=== PATIENT | female | born 1940 | race Caucasian/White ===

== ENCOUNTER 2017-04-02 09:55 | Day surgery (SDC) | payer MEDICARE ==
[~2017-04-02] VITALS: Ht 165.1 cm; Wt 59.0 kg
[~2017-04-02 09:55] MED LIST: 0.9% Sodium Chloride 1,000 ML IV SCH; CALC500T9 PO; LEVO88TA4 PO; Sodium Chloride LOK Flush 10 mL Syringe IV PRN; VITAMIN B 12 SQ; fentaNYL-PF 50 mCg/mL 2 mL Inj IVPUSH PRN
[2017-04-02 10:39] VITALS: BP 136/72; PULSE 50; RESP 16; O2SAT 100
[2017-04-02 12:08] VITALS: BP 113/56; PULSE 54; RESP 16; O2SAT 99
[2017-04-02 12:18] VITALS: BP 115/54; PULSE 49; RESP 16; O2SAT 100
[2017-04-02 12:28] VITALS: BP 121/61; PULSE 53; RESP 16; O2SAT 100
[2017-04-02 12:38] VITALS: BP 138/58; PULSE 43; RESP 16; O2SAT 100
--- NOTE | 2017-04-02 12:54 | PCM.ENDCOL ---
Colonoscopy Date of Service: Apr 02, 2017 Physician Pacheco Muñoz MD Pre Procedure Diagnosis: crohn Post Procedure Dx & Findings: crohn Procedure Colonoscopy PROCEDURE IN DETAIL: Prep adequate. Withdrawal time 11 minutes After unremarkable rectal examination the Olympus video colonoscope was inserted patient's anal canal and was advanced to the anastomosis site. Scope further advanced to the small intestines. Advanced 10 cm. Scope was withdrawn systematically. Visualized colonic mucosa showed healthy shiny mucosa with normal healthy-appearing vasculature. In the terminal ileum, we saw small punctate ulcers with surrounding inflammation in isolated fashion. We also saw this at the anastomosis site. Biopsies obtained in these sites. In the rectum retroflexion was done which showed hemorrhoids. Anal canal was inspected carefully on the way out and hemorrhoids noted. Impression Some Crohn's activity mild to moderate. Hemorrhoids Recommendation Follow up in GI clinic. Presedation Assessment Risks and Benefits Informed consent was obtained from the patient after all risks and benefits including but not limited to drug reaction, infection, pain, bleeding, perforation, as well as alternatives were discussed. Patient monitoring Continuous pulse oximetry, cardiac monitoring, blood pressure monitoring, IV access, and oxygen at 2L per nasal cannula. Periprocedural Fentanyl: Fentanyl 100mcg Incrementally Midazolam: Midazolam 5mg Incrementally Complications There were no periprocedural complications identified. Post Procedure Plan Post Procedure Recommendations 1. Restrict activities today. 2. Resume normal activities in the morning. 3. Resume medications. 4. Patient informed of normal post procedure side effects as bloating, drowsiness, blood streaking in the stool. 5. average risk CRCS. If colon polyps come back as: -Hyperplastic- can repeat colonoscopy in 10 years -Tubular adenoma- repeat colonoscopy in 5 years -Tubulovillous/villous adenoma- repeat colonoscopy in 3 years -If any dysplasia- return to clinic as soon as possible 6. Please don't hesitate to call me with any questions. Pacheco Muñoz MD Apr 02, 2017 12:54
--- NOTE | 2017-04-04 16:54 | PATH ---
SURGICAL PATHOLOGY Attending Physician:Pacheco Muñoz M.D. CASE STATUS: Signed Out PATIENT NAME: GORDON DAVILA PID: [id number] : 1940 DATE COLLECTED:04/02/2017 20:57 SPECIMEN: Ileum, Biopsy CLINICAL HISTORY: 1). TERMINAL ILEUM BIOPSY FINAL DIAGNOSIS: Terminal Ileum, Biopsy: Portions of small bowel mucosa with active inflammation and a detached fragment of fibrinopurulent exudate. No definite granulomas or viral cytopathic effects identified. Negative for dysplasia and malignancy. Please see comment. ICD10: K52.9 NOTE: The differential diagnosis includes NSAID use, a nonspecific bacterial enteritis, the effect of sodium phosphate-containing bowel preparation solutions, and idiopathic inflammatory bowel disease, in the appropriate clinical context. GROSS DESCRIPTION: Received in formalin, labeled with the patient's name and "TI biopsy" are two fragments of [place] soft tissue ranging in size from 0.1 x 0.1 x 0.1 cm to 0.2 x 0.2 x 0.2 cm. All fragments are totally submitted in one cassette. ([id number]) ICD-9 CODES: CPT CODES: 1: 77655 Electronically Signed Out Benita Kelly MD [facility] [address], [place] [address] Technical component performed at [facility], [facility] [address], [place], [address]
== END 2017-04-02 23:59 | disposition home or self-care (01) ==
LOC: END 09:55
PROVIDERS: ATTEND Internal Medicine
DX: K50.00 Crohn's disease of small intestine without complications (principal); K64.8 Other hemorrhoids; K21.9 Gastro-esophageal reflux disease without esophagitis; I47.1 Supraventricular tachycardia; E03.9 Hypothyroidism, unspecified; G43.909 Migraine, unspecified, not intractable, without status migrainosus; E55.9 Vitamin D deficiency, unspecified
CPT/HCPCS: 45380; 99153; G0500; J2250; J3010; J7030